=== PATIENT | female | born 1985 | race African-American/Black ===

== ENCOUNTER 2016-06-17 14:10 | Emergency (ER) | payer BC ==
[~2016-06-17 14:10] MED LIST: ERITROGEN TABLE1 TAB PO; IMITREX50 M2 PO; IRON1 TA1 PO; MONISTAT 745 GM VG; MOTRIN IB200 M1 PO; MOTRIN800 MG PO; PERCOCET 5/3251 TAB PO; PRENATAL1 EACH PO; TRIPNIP TOP
[2016-06-17] MEDS ORDERED: NO HOME MEDICATION XX (14:20)
[2016-06-17] MEDS ORDERED: ULTRAM50 M1 PO (16:19)
== END 2016-06-17 16:28 ==
LOC: EDMED 14:10
DX: M25.561 Pain in right knee (principal); Z98.890 Other specified postprocedural states